=== PATIENT | male | born 1980 | race Caucasian/White ===

== ENCOUNTER 2017-05-22 06:52 | Emergency (ER) | payer OTHER ==
--- NOTE | 2017-05-25 19:03 | ER ---
ADMIT: 05/22/2017 RM/LOC: ER [facility] MR#: [id number] [facility] [id number] KITTY HAYNES [address] [place] [address] Emergency Room Report SEX: M AGE: 37 : 1980 DATE: 05/22/2017 ADDENDUM: A 37-year-old white male coming in with flank pain. He has had stones before, and he feels like it. He does have renal stones, but there are no stones in the ureter although his blood in his urine he may have passed a small stone. He has had these before. He has seen the urologist. He should follow up with them. I did send him home with Aurora 5/325, #30, 1 to 2 p.o. every 6 p.r.n. pain and Zofran 4 mg #30, 1-2 p.o. every 6 p.r.n. nausea. Strain urine and then follow up as needed. CONDITION ON DISCHARGE: Good. Imtiaz Dumont MD/ ambrosio JOB #: [id number] CC: Imtiaz Dumont MD, Attending Physician Miguelangel Santos MD, Family Physician
== END 2017-05-22 10:10 | disposition home or self-care (01) ==
LOC: ER 06:52
DX: N20.0 Calculus of kidney (principal); I10 Essential (primary) hypertension; Z90.89 Acquired absence of other organs; Z98.890 Other specified postprocedural states